=== PATIENT | male | born 1985 | race Caucasian/White ===

== ENCOUNTER 2019-05-07 11:09 | Emergency (ER) | payer SELFPAY ==
[~2019-05-07] VITALS: Ht 185.4 cm; Wt 92.0 kg
[~2019-05-07 11:09] MED LIST: IBUP-1985 PO
[2019-05-07 11:25] VITALS: BP 132/74
[2019-05-07 11:54] LABS: CLARITY,URINE CLEAR (Clear); COLOR,URINE YELLOW (Yellow); GLUCOSE, URINE NEGATIVE (Neg); KETONES,URINE NEGATIVE (Neg); LEUKOCYTE ESTERASE ,URINE NEGATIVE (Neg); NITRITES, URINE NEGATIVE (Neg); OCCULT BLOOD,URINE NEGATIVE (Neg); PH,URINE 7.5 (4.8-8.0); PROTEIN,URINE TRACE mg/dl (Neg); UROBILINOGEN,URINE 0.2 E.U/dL (0.2-1.0)
[2019-05-07 11:58] LABS: UA COLLECTION TYPE CLN CATCH MIDSTREAM
[2019-05-07 12:02] LABS: BACTERIA,URINE NONE SEEN /HPF (Neg); RBC,URINE NONE SEEN /HPF (0-2); SQUAMOUS EPITHELIAL CELL,UR NONE SEEN /LPF (FEW); WBC,URINE NONE SEEN /HPF (0-4)
[2019-05-07] MEDS ORDERED: CefTRIAXone 250MG IM Kit w/LIDOcaine IM ONE (13:15)
[2019-05-07] MEDS ORDERED: azithromycin 250mg tablet PO ONE (13:15)
== END 2019-05-07 13:55 | disposition home or self-care (01) ==
LOC: ER 11:10
DX: N34.2 Other urethritis (principal); F17.200 Nicotine dependence, unspecified, uncomplicated
CPT/HCPCS: 36415; 81001; 87491; 87591; 96372; 99283; J0696

== ENCOUNTER 2019-09-26 00:11 | Emergency (ER) | payer MEDICAID ==
[~2019-09-26] VITALS: Ht 185.4 cm; Wt 75.0 kg
[2019-09-26 01:27] VITALS: BP 132/84
[2019-09-26] MEDS ORDERED: ibuprofen 200mg tablet PO ONE (01:40)
[2019-09-26] MEDS ORDERED: proparacaine 0.5% ophthalmic drops 15ml LEFTEYE ONE (01:45)
[2019-09-26] MEDS ORDERED: erythromycin ophthalmic ointment 1gm tube LEFTEYE ONE (02:30)
== END 2019-09-26 02:53 | disposition home or self-care (01) ==
LOC: ER 00:11
DX: T15.02XA Foreign body in cornea, left eye, initial encounter (principal); F17.200 Nicotine dependence, unspecified, uncomplicated; Z72.89 Other problems related to lifestyle; Z79.899 Other long term (current) drug therapy; W22.8XXA Striking against or struck by other objects, initial encounter; Y93.89 Activity, other specified; Y92.89 Other specified places as the place of occurrence of the external cause; Y99.8 Other external cause status
CPT/HCPCS: 65222; 99284

== ENCOUNTER 2020-10-18 01:52 | Emergency (ER) | payer MEDICAID ==
[~2020-10-18] VITALS: Ht 185.4 cm; Wt 72.0 kg
[2020-10-18 02:00] VITALS: BP 142/89
== END 2020-10-18 05:16 | disposition left against medical advice (07) ==
LOC: ER 01:53
DX: Z00.00 Encounter for general adult medical examination without abnormal findings (principal); Z53.21 Procedure and treatment not carried out due to patient leaving prior to being seen by health care provider

== ENCOUNTER 2020-10-21 02:31 | Emergency (ER) | payer MEDICAID ==
[~2020-10-21] VITALS: Ht 185.4 cm; Wt 77.0 kg
[2020-10-21 02:49] VITALS: BP 145/94
== END 2020-10-21 02:58 | disposition home or self-care (01) ==
LOC: ER 02:32
DX: Z00.8 Encounter for other general examination (principal); F19.10 Other psychoactive substance abuse, uncomplicated; Z72.89 Other problems related to lifestyle; Z79.899 Other long term (current) drug therapy
CPT/HCPCS: 99281

== ENCOUNTER 2021-09-04 21:47 | Emergency (ER) | payer MEDICAID ==
[~2021-09-04] VITALS: Ht 185.4 cm; Wt 75.0 kg
[2021-09-04 21:49] VITALS: BP 136/82
[2021-09-04] MEDS ORDERED: HYDR-3965 PO (22:30)
== END 2021-09-04 22:48 | disposition home or self-care (01) ==
LOC: ER 21:47
DX: K02.9 Dental caries, unspecified (principal); K08.89 Other specified disorders of teeth and supporting structures; Z72.89 Other problems related to lifestyle; Z79.899 Other long term (current) drug therapy
CPT/HCPCS: 99283

== ENCOUNTER 2021-11-18 19:18 | Emergency (ER) | payer MEDICAID ==
[~2021-11-18] VITALS: Ht 185.4 cm; Wt 72.7 kg
[2021-11-18 19:24] VITALS: BP 136/92
[2021-11-18] MEDS ORDERED: AMOX-100 PO (21:13)
[2021-11-18] MEDS ORDERED: IBUP-1986 PO (21:13)
[2021-11-18] MEDS ORDERED: ibuprofen tablet 400 MG TABLET PO ONE (21:15)
[2021-11-18] MEDS ORDERED: amoxicillin 250mg capsule PO ONE (21:15)
[2021-11-18] MEDS ORDERED: azithromycin 250mg tablet PO ONE (21:45)
[2021-11-18] MEDS ORDERED: CefTRIAXone 500MG IM Kit w/LIDOcaine IM ONE (21:45)
[2021-11-18] MEDS ORDERED: CefTRIAXone 1000mg IM Kit (w/lidocaine diluent) IM ONE (21:50)
== END 2021-11-18 21:30 | disposition home or self-care (01) ==
LOC: ER 19:19
DX: K04.7 Periapical abscess without sinus (principal); K08.89 Other specified disorders of teeth and supporting structures; Z72.89 Other problems related to lifestyle; Z79.2 Long term (current) use of antibiotics; Z79.899 Other long term (current) drug therapy
CPT/HCPCS: 99283

== ENCOUNTER 2022-06-12 19:37 | Emergency (ER) | payer MEDICAID ==
[~2022-06-12] VITALS: Ht 185.4 cm; Wt 77.2 kg
[~2022-06-12 19:37] MED LIST changes: +IBUP-1986 PO
[2022-06-12 20:05] VITALS: BP 149/86
== END 2022-06-12 23:08 | disposition left against medical advice (07) ==
LOC: ER 19:37
DX: M79.604 Pain in right leg (principal); Z53.21 Procedure and treatment not carried out due to patient leaving prior to being seen by health care provider

== ENCOUNTER 2022-06-30 20:49 | Emergency (ER) | payer MEDICAID ==
[~2022-06-30] VITALS: Ht 185.4 cm; Wt 77.3 kg
[2022-06-30 20:52] VITALS: BP 142/88
== END 2022-07-01 01:39 | disposition left against medical advice (07) ==
LOC: ER 20:50
DX: M79.672 Pain in left foot (principal); Z53.21 Procedure and treatment not carried out due to patient leaving prior to being seen by health care provider

== ENCOUNTER 2022-08-02 15:15 | Inpatient (IN) | payer MEDICAID ==
[~2022-08-02] VITALS: Ht 185.4 cm; Wt 72.0 kg
[2022-08-02] MEDS ORDERED: vancomycin/NS 1 GM ADD-VANTAGE 250 ML IV ONE (16:45)
[2022-08-02] MEDS ORDERED: CefTRIAXone 2gm/D5W 50ml BAG 50 ML IV ONE (16:45)
[2022-08-02] MEDS ORDERED: NO HOME MEDS (17:32)
[2022-08-02 17:36] LABS: BASOPHILS % (AUTO) 0.3 % (0-1); EOSINOPHILS % (AUTO) 0.5 % (0-6); HEMATOCRIT 41.8 % (42.0-52.0); HEMOGLOBIN 14.1 g/dl (14.0-17.9); LYMPHOCYTES # (AUTO) 1.3 X10'3 (1.1-4.8); LYMPHOCYTES % (AUTO) 12.7 % (21-51); MEAN CORPUSCULAR HGB CONC 33.7 g/dL (33.0-36.5); MEAN CORPUSCULAR VOLUME 92.2 FL (78-98); MEAN PLATELET VOLUME 7.2 FL (7.4-10.4); MONOCYTES # (AUTO) 0.6 X10'3 (0-0.9); NEUTROPHILS # (AUTO) 8.1 X10'3 (1.8-7.7); NEUTROPHILS % (AUTO) 80.5 % (42-75); PLATELET COUNT 261 X10'3 (140-440); RED BLOOD COUNT 4.53 X10'6 (4.70-6.10); RED CELL DISTRIBUTION WIDTH 12.7 % (11.5-14.5); WHITE BLOOD COUNT 10.1 X10'3 (4.5-11.0)
[2022-08-02 17:45] LABS: ALANINE AMINOTRANSFERASE 57 U/L (12-78); ALBUMIN 3.9 G/DL (3.4-5.0); ALKALINE PHOSPHATASE 123 IU/L (46-116); ANION GAP 7 (8-16); ASPARTATE AMINO TRANSFERASE 23 U/L (10-37); BILIRUBIN,TOTAL 0.6 MG/DL (0.1-1.0); BLOOD UREA NITROGEN 16 MG/DL (7-18); CALCIUM 8.7 MG/DL (8.5-10.1); CHLORIDE 99 MMOL/L (99-107); GLUCOSE 84 MG/DL (70-104); POTASSIUM 4.1 MMOL/L (3.5-5.1); SODIUM 135 MMOL/L (135-145); TOTAL CARBON DIOXIDE 28.7 MMOL/L (24-32); TOTAL PROTEIN 7.7 G/DL (6.4-8.2); eGFR 84 ML/MIN
[2022-08-02 19:06] VITALS: BP 128/80
[2022-08-02] MEDS ORDERED: acetaminophen 325mg tablet PO PRN (19:30)
[2022-08-02] MEDS ORDERED: mag hydrox/Alum hydrox/simeth 30ml oral suspension PO PRN (19:30)
[2022-08-02] MEDS ORDERED: magnesium hydroxide 30ml (MOM) UD suspension PO PRN (19:30)
[2022-08-02] MEDS ORDERED: potassium Cl 40MEQ/1/2NS 520ml 520 ML IV PRN (19:30)
[2022-08-02] MEDS ORDERED: potassium Cl 20 mEq SR tablet PO PRN ×2 (19:30)
[2022-08-02] MEDS ORDERED: morphine 2 MG/ML inj. syringe IV PRN ×2 (19:30)
[2022-08-02] MEDS ORDERED: magnesium Cl slow-release 64mg tablet PO PRN (19:30)
[2022-08-02] MEDS ORDERED: magnesium 4gm in 100ml NS 100 ML IV PRN (19:30)
[2022-08-02] MEDS ORDERED: normal saline 1000ml 1,000 ML IV SCH (19:30)
[2022-08-02] MEDS ORDERED: ondansetron/PF 4mg/2ml inj IV PRN (19:30)
[2022-08-02] MEDS ORDERED: clindamycin 300mg/D5W 50mL 50 ML IV SCH (20:00)
[2022-08-02] MEDS ORDERED: K and/or MAG REPLACEMENT MC SCH (20:00)
[2022-08-02] MEDS ORDERED: docusate sod 100mg capsule PO SCH (20:00)
--- NOTE | 2022-08-02 20:11 | NUR ---
PT WANTED TO LEAVE AMA. AMA PAPERS SIGNED. DR. MERRITT CALLED AND UPDATED.
[2022-08-03] MEDS ORDERED: vancomycin/NS 1 GM ADD-VANTAGE 250 ML IV SCH (05:00)
[2022-08-03] MEDS ORDERED: heparin, porcine 5000 units/ml vial SQ SCH (20:00)
== END 2022-08-02 20:12 | disposition left against medical advice (07) | DRG 351 ==
LOC: ER 15:16 → ED HOLD 19:30
PROVIDERS: ADMIT Internal Medicine; ATTEND Internal Medicine
DX: S61.202A Unspecified open wound of right middle finger without damage to nail, initial encounter (principal); F15.10 Other stimulant abuse, uncomplicated; X58.XXXA Exposure to other specified factors, initial encounter; Y93.89 Activity, other specified; Y92.89 Other specified places as the place of occurrence of the external cause; Y99.8 Other external cause status
CPT/HCPCS: 36415; 80053; 83605; 84145; 85025; 99285; G0378; J0696; J3370

== ENCOUNTER 2023-05-25 21:29 | Emergency (ER) | payer MEDICAID, SELFPAY ==
[~2023-05-25] VITALS: Ht 185.4 cm; Wt 74.5 kg
[~2023-05-25 21:29] MED LIST changes: -IBUP-1985 PO; -IBUP-1986 PO; +NO HOME MEDS
[2023-05-25 21:50] VITALS: BP 139/84; PULSE 98; RESP 16; TEMP 98.1; O2SAT 99
== END 2023-05-25 22:11 | disposition home or self-care (01) ==
LOC: ER 21:29
DX: F15.20 Other stimulant dependence, uncomplicated (principal); Z02.89 Encounter for other administrative examinations; Z72.89 Other problems related to lifestyle
CPT/HCPCS: 99281

== ENCOUNTER 2023-11-16 07:28 | Emergency (ER) | payer MEDICAID, SELFPAY ==
[~2023-11-16] VITALS: Ht 185.4 cm; Wt 75.2 kg
[2023-11-16 08:13] VITALS: BP 126/82; PULSE 90; RESP 20; TEMP 98.6; O2SAT 98
== END 2023-11-16 08:15 | disposition home or self-care (01) ==
LOC: ER 07:28
DX: F15.90 Other stimulant use, unspecified, uncomplicated (principal)
CPT/HCPCS: 99281

== ENCOUNTER 2024-04-04 15:09 | Emergency (ER) | payer MEDICAID ==
[~2024-04-04] VITALS: Ht 185.4 cm; Wt 74.8 kg
[2024-04-04] MEDS ORDERED: CLIN-167 PO (16:51)
[2024-04-04] MEDS: clindamycin 300mg/D5W 50mL 50 ML IV STA (17:08)
[2024-04-04] MEDS: CefTRIAXone 1000mg IM Kit (w/lidocaine diluent) IM ONE (17:18)
[2024-04-04] MEDS: HYDROcodone/acetaminophen 5mg/325mg tablet PO ONE (17:26)
[2024-04-04 17:33] VITALS: BP 114/78; PULSE 74; RESP 16; TEMP 98.1; O2SAT 97
== END 2024-04-04 17:34 | disposition home or self-care (01) ==
LOC: ER 15:09
DX: L02.511 Cutaneous abscess of right hand (principal); L03.113 Cellulitis of right upper limb; Z72.89 Other problems related to lifestyle
CPT/HCPCS: 96365; 96372; 99284; J0696; J3490

== ENCOUNTER 2024-10-27 02:31 | Emergency (ER) | payer MEDICAID ==
[~2024-10-27] VITALS: Ht 185.4 cm; Wt 63.6 kg
[2024-10-27 02:33] VITALS: TEMP 97.6
[2024-10-27 03:30] VITALS: BP 150/94; PULSE 104; RESP 16; O2SAT 98
== END 2024-10-27 03:32 | disposition home or self-care (01) ==
LOC: ER 02:32
DX: F15.20 Other stimulant dependence, uncomplicated (principal); Z72.89 Other problems related to lifestyle
CPT/HCPCS: 99281

== ENCOUNTER 2025-06-30 12:33 | Emergency (ER) | payer MEDICAID ==
[~2025-06-30] VITALS: Ht 185.4 cm; Wt 76.0 kg
[2025-06-30 12:39] VITALS: TEMP 98.1
--- NOTE | 2025-06-30 13:04 | RADIOLOGY REPORT ---
DI CHEST,TWO VIEWS CLINICAL HISTORY: CCC COMPARISON: None TECHNIQUE: Frontal and lateral view of the chest was obtained FINDINGS: Lines and Tubes: None Lungs: No focal consolidation. Pleura: No effusion. No pneumothorax. Cardiomediastinal contours: Unremarkable Bones: No acute osseous abnormality. IMPRESSION: No acute cardiopulmonary disease.
[2025-06-30] MEDS ORDERED: AZIT-103 PO (14:17)
[2025-06-30] MEDS ORDERED: ALBU8HFA INH (14:17)
--- NOTE | 2025-06-30 14:17 | Physician Documentation ---
History of Present Illness ~ Chief Complaint: Cold, cough & congestion Stated Complaint: COLD SYMPTOMS Time Seen by MD: 13:55 Primary Medical Doctor: Dami VARGHESE 39-year-old male presents to the ED with a complaint of cold cough and congestion for the last two weeks. He has it primarily hurts when he lays in his right side. In his fevers denies any history of asthma. denies Any drug allergy. Day of Onset: Jun 30, 2025 Medication Reconciliation Allergies: Coded Allergies: No Known Allergies (Unverified , 06/30/25) Scheduled Azithromycin (Azithromycin), 1 TAB PO UD Scheduled PRN albuterol inhaler (Pro-Air Inhaler), 2 PUFFS INH Q4HPRN PRN for wheezing Miscellaneous Medications Home Med List (No Home Medications), (Reported) Past Medical History Past Medical History: No Pertinent History Past Surgical History: noncontributory Alcohol Use: Occasionally Drug Use: none Lives In: Home Review of Systems All Other Systems at this time: Reviewed and Negative ROS As stated above in the HPI, otherwise all systems are reviewed and negative. Physical Exam Vital Signs: Temperature: 98.1, Source: Temporal, Heart Rate: 100, Respiratory Rate: 16, BP: 112/78, Pulse Oximetry: 97, Weight: 76.000 Oxygen Flow Rate: 0 Physical Exam General: Alert, no apparent distress. HEENT: PERRL, EOMI, no injection, moist mucous membranes. Neck: Full range of motion. Respiratory: Lungs clear, no respiratory distress. Chest: No accessory muscle use. Cardiovascular: Regular rate and rhythm, no murmurs. Gastrointestinal: Soft, nontender, nondistended. Bowels sounds present. Extremities: Normal range of motion, no deformity. Neurologic: Oriented x4. Psychiatric: Normal mood and affect. Skin: Normal color, warm and dry. No edema, no ecchymosis. Progress Results/Orders Results/Orders Vital Signs 06/30/25 06/30/25 06/30/25 12:39 12:57 15:08 Temp 98.1 Pulse 100 74 Resp 18 16 18 B/P (MAP) 112/78 122/75 Pulse Ox 97 98 O2 Flow Rate 0 Medical Decision Making Additional information obtaine: old records Findings Treat this patient for bacterial bronchitis based on the length of symptoms. Present any acute distress normal vital signs. Oral antibiotics and send him home with a an inhaler Differential Dx:Considerations: Include: Allergic rhinitis, Influenza, Otitis media, Peritonsillar abscess, Pharyngitis-Diphtheria, Pharyngitis-Streptoccal, Pharyngitis-Viral, Pneumonia, Pnuemonitis, Sinusitis, URI, Other Departure Disposition: HOME / SELF CARE / HOMELESS Impression: Primary Impression: Acute bronchitis Condition: Stable Discharge Instructions: Upper Respiratory Infection, Adult Referrals: NO PRIMARY CARE PROVIDER (PCP) Prescriptions albuterol inhaler (Pro-Air Inhaler) 8.5 Gm Inhaler 2 PUFFS INH Q4HPRN PRN for wheezing for 30 Days, #18 GM Prov: ROMEL CHAVEZ NP 06/30/25 Azithromycin (Azithromycin) 250 Mg Tablet 1 TAB PO UD for 5 Days, #6 TAB 2 the first day followed by 1 for days 2-5 Prov: ROMEL CHAVEZ NP 06/30/25 Education Educated: Patient Educated regarding: diagnosis Signature Scribe Signature: d Attestation: Scribed for Romel Chavez Neuropathologist by Romel Denson NP . 06/30/25 23:20 ROMEL CHAVEZ NP Jun 30, 2025 14:17
[2025-06-30 15:08] VITALS: BP 122/75; PULSE 74; RESP 18; O2SAT 98
== END 2025-06-30 15:09 | disposition home or self-care (01) ==
LOC: ER 12:33
DX: J20.9 Acute bronchitis, unspecified (principal); Z72.89 Other problems related to lifestyle
CPT/HCPCS: 71046; 99283